=== PATIENT | female | born 1940 | race Caucasian/White ===

== ENCOUNTER 2021-02-05 11:39 | Observation (INO) | payer MEDICARE, BC ==
[2021-02-05] MEDS ORDERED: Sodium Chloride 0.9% 10 ML Syringe FLUSH PRN ×2 (12:28→16:17)
--- NOTE | 2021-02-05 12:30 | EDM.PDOC ---
ED HPI GENERAL MEDICAL PROBLEM - General Chief Complaint: General Stated Complaint: CANCER PATIENT-DIZZY SPELLS WHEN STAND UP Time Seen by Provider: 02/05/21 12:23 Source of Information: Reports: Patient, RN History Limitations: Reports: No Limitations - History of Present Illness INITIAL COMMENTS - FREE TEXT/NARRATIVE: Aleyda is a 80 year old male whom presents with and daughter, whom assist with history, to ER regarding progressive worsening for lightheadedness and generalized weakness with feeling of passing out when standing or ambulating, unsteady. Aleyda is here on vacation from [place] with family. She is battling leukemia and receiving Chemo therapy, port in anterior chest, OK with IV access. Aleyda had a low hgb a few weeks ago and require and blood trans fusion. Aleyda contacted her oncologist whom recommended ER evaluation. Aleyda denies, fever, cough, URI symptoms, SOB, chest pain, diarrhea, urinary symptoms or concerns. Appetite low on Sat, ate well yesterday with small breakfast this am, OJ and donut without concerns. - Related Data Allergies Allergy/AdvReac Type Severity Reaction Status Date / Time Iodinated Contrast Media Allergy Rash Verified 02/05/21 14:36 Sulfa (Sulfonamide Allergy Cannot Verified 02/05/21 12:16 Antibiotics) Remember Home Meds: Home Meds Calcium Carbonate [Calcium] 600 mg PO DAILY 02/05/21 [History] Multivitamin 1 tab PO DAILY 02/05/21 [History] Potassium Chloride 10 meq PO DAILY 02/05/21 [History] Simvastatin [Zocor] 20 mg PO DAILY 02/05/21 [History] hydroCHLOROthiazide [Hydrochlorothiazide] 25 mg PO DAILY 02/05/21 [History] lisinopriL [Lisinopril] 20 mg PO DAILY 02/05/21 [History] Past Medical History HEENT History: Reports: Cataract Cardiovascular History: Reports: High Cholesterol, Hypertension 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 ED EXAM, GENERAL - Physical Exam Exam: See Below Exam Limited By: No Limitations General Appearance: Alert, WD/WN, Thin Eye Exam: Bilateral Eye: Normal Inspection Ears: Hearing Grossly Normal Nose: Normal Inspection Throat/Mouth: Normal Inspection, Normal Voice, No Airway Compromise Neck: Normal Inspection Respiratory/Chest: No Respiratory Distress, Lungs Clear, Normal Breath Sounds Cardiovascular: Normal Peripheral Pulses, Regular Rate, Rhythm GI/Abdominal: Normal Bowel Sounds, Soft, Non-Tender (Female) Exam: Deferred Rectal (Female) Exam: Deferred Extremities: Normal Inspection, Normal Range of Motion, Non-Tender, Normal Capillary Refill Neurological: Alert, Oriented, CN II-XII Intact, Normal Cognition, Abnormal Gait Psychiatric: Normal Affect, Normal Mood Skin Exam: Warm, Dry, Intact, No Rash, Pallor #1 Interpretation EKG Date: 02/05/21 Time: 12:37 Rhythm: NSR Rate (Beats/Min): 92 Peck: Normal P-Wave: Variable (PACs) QRS: Normal ST-T: Normal QT: Normal Comparison: NA - No Prior EKG EKG Interpretation Comments: Poor R wave progression noted Course - Vital Signs Last Recorded V/S: Last Vital Signs Temp 36.4 C 02/05/21 12:14 Pulse 107 H 02/05/21 15:05 Resp 16 02/05/21 15:05 BP 116/66 02/05/21 15:05 Pulse Ox 96 02/05/21 15:05 Orthostatic Blood Pressure [ 106/55 Standing] Orthostatic Blood Pressure [ 114/63 Sitting] Orthostatic Blood Pressure [ 126/63 Supine] - Orders/Labs/Meds Orders: Active Orders 24 hr Category Date Time Status Cardiac Monitoring [RC] .As Directed Care 02/05/21 12:28 Active EKG Documentation Completion [RC] ASDIRECTED Care 02/05/21 12:29 Active Implanted Port Access [RC] DAILY Care 02/05/21 14:38 Active Peripheral IV Care [RC] . DIRECTED Care 02/05/21 12:29 Active PATIENT RETYPE [BBK] Stat Lab 02/05/21 14:58 Results RED BLOOD CELLS LP [BBK] Stat Lab 02/05/21 14:58 Results TYPE AND SCREEN [BBK] Stat Lab 02/05/21 14:58 Results UA W/MICROSCOPIC [URIN] Stat Lab 02/05/21 12:28 Ordered Potassium Chloride [KCL in Water 20 MEQ/100 ML] 20 meq Med 02/05/21 15:00 Active Premix Bag 1 bag IV ONETIME Sodium Chloride 0.9% [Saline Flush] Med 02/05/21 12:28 Active 10 ml FLUSH ASDIRECTED PRN Peripheral IV Insertion Adult [OM.PC] Urgent Oth 02/05/21 12:28 Ordered Transfuse Red Blood Cells [COMM] Stat Oth 02/05/21 14:36 Ordered EKG 12 Lead [EK] Urgent Ther 02/05/21 12:28 Ordered Medication Orders Potassium Chloride 20 meq/ (Premix) 100 mls @ 50 mls/hr IV ONETIME ONE Stop: 02/05/21 16:59 Last Admin: 02/05/21 15:01 Dose: 50 mls/hr Documented by: PEARL Sodium Chloride (Sodium Chloride 0.9% 10 Ml Syringe) 10 ml FLUSH ASDIRECTED PRN PRN Reason: Keep Vein Open Last Admin: 02/05/21 13:16 Dose: 10 ml Documented by: PEARL Labs: Laboratory Tests 02/05/21 02/05/21 02/05/21 Range/Units 13:14 13:14 13:14 WBC 3.7 L (4.5-11.0) K/uL RBC 2.42 L (3.30-5.50) M/uL Hgb 7.6 L (12.0-15.0) g/dL Hct 23.4 L (36.0-48.0) % MCV 97 (80-98) fL MCH 31 (27-31) pg MCHC 33 (32-36) % Plt Count 29 L* (150-400) K/uL Add Manual Diff Yes Neutrophils % (Manual) 56 (36-66) % Band Neutrophils % 15 H (5-11) % Lymphocytes % (Manual) 18 L (24-44) % Monocytes % (Manual) 11 H (2-6) % Sodium 138 L (140-148) mmol/L Potassium 2.7 L* (3.6-5.2) mmol/L Chloride 100 (100-108) mmol/L Carbon Dioxide 31 (21-32) mmol/L Anion Gap 9.7 (5.0-14.0) mmol/L BUN 18 (7-18) mg/dL Creatinine 1.2 H (0.6-1.0) mg/dL Est Cr Clr Drug Dosing 34.21 mL/min Estimated GFR (MDRD) 43 L (>60) Glucose 118 H (74-106) mg/dL Calcium 7.7 L (8.5-10.1) mg/dL Magnesium 1.3 L (1.8-2.4) mg/dL Total Bilirubin 0.4 (0.2-1.0) mg/dL AST 21 (15-37) U/L ALT 15 (12-78) U/L Alkaline Phosphatase 62 (46-116) U/L Troponin I 0.071 H* (0.000-0.056) ng/mL Total Protein 4.6 L (6.4-8.2) g/dL Albumin 2.3 L (3.4-5.0) g/dL Globulin 2.3 (2.3-3.5) g/dL Albumin/Globulin Ratio 1.0 L (1.2-2.2) Meds: Medications Generic Name Dose Route Start Last Admin Trade Name Freq PRN Reason Stop Dose Admin Potassium Chloride 20 meq/ 100 mls @ 50 mls/hr 02/05/21 15:00 02/05/21 15:01 Premix IV 02/05/21 16:59 50 mls/hr ONETIME ONE Administration Sodium Chloride 10 ml 02/05/21 12:28 02/05/21 13:16 Sodium Chloride 0.9% 10 Ml Syringe FLUSH 10 ml ASDIRECTED PRN Administration Keep Vein Open Discontinued Medications Generic Name Dose Route Start Last Admin Trade Name Freq PRN Reason Stop Dose Admin Magnesium Sulfate 2 gm/ Premix 50 mls @ 25 mls/hr 02/05/21 13:54 02/05/21 15:01 IV 02/05/21 15:53 25 mls/hr ONETIME ONE Administration Potassium Chloride 20 meq 02/05/21 13:52 02/05/21 14:59 Potassium Chloride 20 Meq Tab.Er PO 02/05/21 13:53 20 meq ONETIME ONE Administration - Re-Assessments/Exams Free Text/Narrative Re-Assessment/Exam: Up dated family and patient regarding blood test results and need for additional potassium and magnesium which may explain her symptoms. IV recommended fro decreased in renal function. Hgb a bit low 7.6 but do not know baseline level, pRBC may be needed. Low Plt in known with chemotherapy. Troponin 0.071 likely secondary to chemo therapy, no chest pain or EKG changes concerns at this time. Consider monitor for changes on EKG or Troponin level. Patient is no aware of previous Hgb level. Patient's daughter told mom to hold her potassium for a few days, so she has not been taking her routine 20meq potassium daily. 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 Called Oncology clinic regarding previous laboratory results for comparison today. January 26, 2021: Hgb 9.3 (last transfusion January 04). Plt 88 (h/o plt 20) Potassium 3.5 h/o 3.3 No previous Mag checked. Creat 0.9. Troponin 0.071 likely demand ischemia due to chronic anemia not ACS. Oncology MUK[facility] Hathaway, will be sending Oncology records to assist with inpatient care overnight. 02/05/21 14:27 Type/Screen and pRBC 1 unit ordered. Plt to be considered. Potassium 20meg IV and 20 meq PO ordered. Magnesium 2GM with request for port access at this time. 02/05/21 14:39 Departure - Departure Time of Disposition: 16:04 Disposition: Admitted As Inpatient 67 Clinical Impression: Hypokalemia, Hypomagnesemia, Symptomatic anemia, Chemotherapy adverse reaction, Thrombocytopenia, Weakness, Non-Hodgkin lymphoma, Pancytopenia, acquired - Discharge Information Sepsis Event Note (ED) - Evaluation Sepsis Screening Result: No Definite Risk - Focused Exam Vital Signs: Vital Signs Temp Pulse Resp BP Pulse Ox 02/05/21 12:56 93 126/58 L 92 L 02/05/21 12:26 88 121/61 95 02/05/21 12:14 36.4 C 95 14 126/63 96 02/05/21 12:04 36.4 C 95 14 126/63 96 - My Orders Last 24 Hours: My Active Orders 02/05/21 12:28 Cardiac Monitoring [RC] .As Directed UA W/MICROSCOPIC [URIN] Stat Sodium Chloride 0.9% [Saline Flush] 10 ml FLUSH ASDIRECTED PRN Peripheral IV Insertion Adult [OM.PC] Urgent EKG 12 Lead [EK] Urgent 02/05/21 12:29 EKG Documentation Completion [RC] ASDIRECTED Peripheral IV Care [RC] . DIRECTED 02/05/21 14:36 Transfuse Red Blood Cells [COMM] Stat 02/05/21 14:38 Implanted Port Access [RC] DAILY 02/05/21 14:58 PATIENT RETYPE [BBK] Stat RED BLOOD CELLS LP [BBK] Stat TYPE AND SCREEN [BBK] Stat 02/05/21 15:00 Potassium Chloride [KCL in Water 20 MEQ/100 ML] 20 meq Premix Bag 1 bag IV ONETIME - Assessment/Plan Last 24 Hours: My Active Orders 02/05/21 12:28 Cardiac Monitoring [RC] .As Directed UA W/MICROSCOPIC [URIN] Stat Sodium Chloride 0.9% [Saline Flush] 10 ml FLUSH ASDIRECTED PRN Peripheral IV Insertion Adult [OM.PC] Urgent EKG 12 Lead [EK] Urgent 02/05/21 12:29 EKG Documentation Completion [RC] ASDIRECTED Peripheral IV Care [RC] . DIRECTED 02/05/21 14:36 Transfuse Red Blood Cells [COMM] Stat 02/05/21 14:38 Implanted Port Access [RC] DAILY 02/05/21 14:58 PATIENT RETYPE [BBK] Stat RED BLOOD CELLS LP [BBK] Stat TYPE AND SCREEN [BBK] Stat 02/05/21 15:00 Potassium Chloride [KCL in Water 20 MEQ/100 ML] 20 meq Premix Bag 1 bag IV ONETIME
[2021-02-05] MEDS ORDERED: Potassium Chloride 10% 20 MEQ/15 ML Soln 15 ML UD Cup PO ONE (13:52)
[2021-02-05] MEDS ORDERED: Potassium Chloride 20 MEQ Tab.ER PO ONE ×3 (13:52→20:28)
[2021-02-05] MEDS ORDERED: Magnesium Sulfate/Water 2 GM in Premix Bag 1 BAG IV ONE (13:54)
--- NOTE | 2021-02-05 14:51 | PCM.HP.2 ---
H&P History of Present Illness - General Date of Service: 02/05/21 Admit Problem/Dx: Admission Diagnosis/Problem Admission Diagnosis/Problem Weakness Source of Information: Patient, Family, Old Records, Provider, RN Notes Reviewed History Limitations: Reports: No Limitations - History of Present Illness Initial Comments - Free Text/Narative: Ms. Hurt is a 80-year-old woman who was admitted to observation status through the emergency department with weakness and lightheadedness. 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 Last chemotherapy in fusion was on January 26. Recent chemotherapy has been complicated by pancytopenia. She did receive transfusion of 2 units of red blood cells first part of January. Over the last 2 days has become progressively more weak, she does admit to poor intake of liquids. She has felt lightheaded and has had several near syncopal episodes. Because of progressive symptoms she was brought into the emergency department for further evaluation. She is anemic with a hemoglobin of 7.6 and thrombocytopenic with platelets of 29,000. Potassium and magnesium are both low. Orthostatic vital signs do document significant orthostatic drop in blood pressure from lying to standing. - Related Data Allergies/Adverse Reactions: Allergies Allergy/AdvReac Type Severity Reaction Status Date / Time Iodinated Contrast Media Allergy Rash Verified 02/05/21 14:36 Sulfa (Sulfonamide Allergy Cannot Verified 02/05/21 12:16 Antibiotics) Remember Home Medications: Home Meds Calcium Carbonate [Calcium] 600 mg PO DAILY 02/05/21 [History] Multivitamin 1 tab PO DAILY 02/05/21 [History] Potassium Chloride 10 meq PO DAILY 02/05/21 [History] Simvastatin [Zocor] 20 mg PO DAILY 02/05/21 [History] hydroCHLOROthiazide [Hydrochlorothiazide] 25 mg PO DAILY 02/05/21 [History] lisinopriL [Lisinopril] 20 mg PO DAILY 02/05/21 [History] Past Medical History HEENT History: Reports: Cataract Cardiovascular History: Reports: High Cholesterol, Hypertension 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 Denies: Fever, Chills HEENT: Reports: No Symptoms Pulmonary: Reports: No Symptoms Cardiovascular: Reports: Lightheadedness. Denies: Chest Pain, Palpitations, Dyspnea on Exertion, Orthopnea, PND, Edema, Syncope Gastrointestinal: Reports: No Symptoms Genitourinary: Reports: No Symptoms Musculoskeletal: Reports: No Symptoms Skin: Reports: No Symptoms Psychiatric: Reports: No Symptoms Neurological: Reports: No Symptoms Hematologic/Lymphatic: Reports: No Symptoms Immunologic: Reports: No Symptoms Exam - Exam Exam: See Below - Vital Signs Vital Signs: Last Vital Signs Temp 97.5 F 02/05/21 12:14 Pulse 93 02/05/21 12:56 Resp 14 02/05/21 12:14 BP 126/58 L 02/05/21 12:56 Pulse Ox 92 L 02/05/21 12:56 Orthostatic Blood Pressure [ 106/55 Standing] Orthostatic Blood Pressure [ 114/63 Sitting] Orthostatic Blood Pressure [ 126/63 Supine] Weight: 145 lb - Exam Quality Assessment: DVT Prophylaxis General: Alert, Oriented, Cooperative, Mild Distress HEENT: Conjunctiva Clear, Hearing Intact, Normal Nasal Septum, Posterior Pharynx Clear, Pupils Equal. No: Mucosa Moist & [place] Neck: Supple, Trachea Midline, +2 Carotid Pulse wo Bruit Lungs: Clear to Auscultation, Normal Respiratory Effort Cardiovascular: Regular Rate, Regular Rhythm, Normal S1, Normal S2, Systolic Murmur. No: Diastolic Murmur GI/Abdominal Exam: Soft, Non-Tender, No Organomegaly, No Distention Back Exam: Normal Inspection, Full Range of Motion Extremities: Non-Tender, No Pedal Edema Skin: Warm, Dry, Intact Neurological: Cranial Nerves Intact, Strength Equal Bilateral, Normal Speech, Normal Tone, Sensation Intact. No: Focal Deficit Neuro Extensive - Mental Status: Alert, Oriented x3, Normal Mood/Affect, Normal Cognition, Memory Intact - Patient Data Lab Results Last 24 hrs: Laboratory Results - last 24 hr 02/05/21 02/05/21 02/05/21 Range/Units 13:14 13:14 13:14 WBC 3.7 L (4.5-11.0) K/uL RBC 2.42 L (3.30-5.50) M/uL Hgb 7.6 L (12.0-15.0) g/dL Hct 23.4 L (36.0-48.0) % MCV 97 (80-98) fL MCH 31 (27-31) pg MCHC 33 (32-36) % Plt Count 29 L* (150-400) K/uL Add Manual Diff Yes Neutrophils % (Manual) 56 (36-66) % Band Neutrophils % 15 H (5-11) % Lymphocytes % (Manual) 18 L (24-44) % Monocytes % (Manual) 11 H (2-6) % Sodium 138 L (140-148) mmol/L Potassium 2.7 L* (3.6-5.2) mmol/L Chloride 100 (100-108) mmol/L Carbon Dioxide 31 (21-32) mmol/L Anion Gap 9.7 (5.0-14.0) mmol/L BUN 18 (7-18) mg/dL Creatinine 1.2 H (0.6-1.0) mg/dL Est Cr Clr Drug Dosing 34.21 mL/min Estimated GFR (MDRD) 43 L (>60) Glucose 118 H (74-106) mg/dL Calcium 7.7 L (8.5-10.1) mg/dL Magnesium 1.3 L (1.8-2.4) mg/dL Total Bilirubin 0.4 (0.2-1.0) mg/dL AST 21 (15-37) U/L ALT 15 (12-78) U/L Alkaline Phosphatase 62 (46-116) U/L Troponin I 0.071 H* (0.000-0.056) ng/mL Total Protein 4.6 L (6.4-8.2) g/dL Albumin 2.3 L (3.4-5.0) g/dL Globulin 2.3 (2.3-3.5) g/dL Albumin/Globulin Ratio 1.0 L (1.2-2.2) Result Diagrams: 02/05/21 13:14 02/05/21 13:14 Sepsis Event Note - Evaluation Sepsis Screening Result: No Definite Risk - Focused Exam Vital Signs: Vital Signs Temp Pulse Resp BP Pulse Ox 02/05/21 12:56 93 126/58 L 92 L 02/05/21 12:26 88 121/61 95 02/05/21 12:14 97.5 F 95 14 126/63 96 02/05/21 12:04 97.5 F 95 14 126/63 96 *Q Meaningful Use (ADM) - VTE *Q VTE Pharmacological Contraindications *Q: Thrombocytopenia - VTE Risk Assess *Q Each Risk Factor Represents 1 Point: None Total Score 1 Point Risk Factors: 0 Each Risk Factor Represents 2 Points: Malignancy (present or previous) Total Score 2 Point Risk Factors: 2 Each Risk Factor Represents 3 Points: Age 75 Years or Greater Total Score 3 Point Risk Factors: 3 Each Risk Factor Represents 5 Points: None Total Score 5 Point Risk Factors: 0 Venous Thromboembolism Risk Factor Score *Q: 5 Problem List Initiated/Reviewed/Updated: Yes Orders Last 24hrs: Active Orders 24 hr Category Date Time Status Patient Status Manage Transfer [TRANSFER] Routine ADT 02/05/21 14:41 Ordered Cardiac Monitoring [RC] .As Directed Care 02/05/21 12:28 Active EKG Documentation Completion [RC] ASDIRECTED Care 02/05/21 12:29 Active Implanted Port Access [RC] DAILY Care 02/05/21 14:38 Active Peripheral IV Care [RC] . DIRECTED Care 02/05/21 12:29 Active RED BLOOD CELLS LP [BBK] Stat Lab 02/05/21 14:36 Ordered TYPE AND SCREEN [BBK] Stat Lab 02/05/21 14:36 Ordered UA W/MICROSCOPIC [URIN] Stat Lab 02/05/21 12:28 Ordered Magnesium Sulfate/Water [Magnesium Sulfate in Water 2 Med 02/05/21 13:54 Active GM/50 ML] 2 gm Premix Bag 1 bag IV ONETIME Potassium Chloride [KCL in Water 20 MEQ/100 ML] 20 meq Med 02/05/21 15:00 Active Premix Bag 1 bag IV ONETIME Sodium Chloride 0.9% [Saline Flush] Med 02/05/21 12:28 Active 10 ml FLUSH ASDIRECTED PRN Peripheral IV Insertion Adult [OM.PC] Urgent Oth 02/05/21 12:28 Ordered Transfuse Red Blood Cells [COMM] Stat Oth 02/05/21 14:36 Ordered Resuscitation Status Routine Resus Stat 02/05/21 14:44 Ordered EKG 12 Lead [EK] Urgent Ther 02/05/21 12:28 Ordered Medication Orders Magnesium Sulfate 2 gm/ Premix 50 mls @ 25 mls/hr IV ONETIME ONE Stop: 02/05/21 15:53 Potassium Chloride 20 meq/ (Premix) 100 mls @ 50 mls/hr IV ONETIME ONE Stop: 02/05/21 16:59 Sodium Chloride (Sodium Chloride 0.9% 10 Ml Syringe) 10 ml FLUSH ASDIRECTED PRN PRN Reason: Keep Vein Open Last Admin: 02/05/21 13:16 Dose: 10 ml Documented by: PEARL Assessment/Plan Comment:: ASSESSMENT AND PLAN GENERALIZED WEAKNESS-likely multifactorial related to anemia and dehydration, with recent chemotherapy. -Physical therapy consult ORTHOSTATIC HYPOTENSION-recent episodes of near syncope and weakness. Likely secondary to dehydration, complicated by antihypertensive therapy. -IV fluids for hydration -Hold antihypertensive therapy with lisinopril and hydrochlorothiazide HYPOKALEMIA-she had stopped taking oral potassium replacement, also complicated by therapy with hydrochlorothiazide -Oral and IV potassium replacement -Recheck potassium level later tonight and in a.m. HYPOMAGNESEMIA -IV magnesium replacement -Recheck magnesium level in a.m. PANCYTOPENIA-secondary to underlying lymphoma and chemotherapy. -Transfuse 1 unit of red blood cells -Recheck labs in a.m. ELEVATED TROPONIN-likely secondary to demand ischemia in setting of current illness and recent chemotherapy -Serial troponin levels LYMPHOMA MAINTENANCE ISSUES -DVT prophylaxis; SCUDs, hold on anticoagulation because of thrombocytopenia -GI prophylaxis; not indicated -[place] catheter; not indicated -Nutrition; regular diet -Nicotine dependence; not required CODE STATUS-FULL CODE ADMISSION STATUS-this patient will be admitted to observation status, expect no more than a one night hospital stay for evaluation and management of problems as outlined above. DISPOSITION-anticipate discharge to home after the hospital stay. PRIMARY CARE PROVIDER-she receives primary care and specialty care at her home in [place] - Mortality Measure Prognosis:: Good
[2021-02-05] MEDS ORDERED: Potassium Chloride 20 MEQ in Premix Bag 1 BAG IV ONE (15:00)
[2021-02-05] MEDS ORDERED: Ondansetron 4 MG/2 ML SDV IV PRN (16:17)
[2021-02-05] MEDS ORDERED: Acetaminophen 325 MG Tab PO PRN (16:17)
[2021-02-05] MEDS ORDERED: Polyethylene Glycol 3350 Powder 17 GM Packet PO PRN (16:17)
[2021-02-05] MEDS: Sodium Chloride 0.9% 1,000 ML IV SCH (17:09)
[2021-02-05] MEDS ORDERED: Magnesium Sulfate/Water 2 GM in Premix Bag 1 BAG IV SCH (19:00)
[2021-02-06] MEDS: Sodium Chloride 0.9% 1,000 ML IV SCH (06:45)
[2021-02-06] MEDS ORDERED: atorvaSTATin 10 MG Tab PO SCH (09:00)
[2021-02-06] MEDS ORDERED: Calcium Carbonate 500 MG Tab.Chew PO SCH (09:00)
[2021-02-06] MEDS ORDERED: Potassium Chloride 10 MEQ Cap.ER PO SCH (09:00)
--- NOTE | 2021-02-06 11:50 | PCM.DCSUM1 ---
Discharge Summary - Hospital Course Brief History: Ms. Hurt is a 80-year-old woman who was admitted through the emergency department with weakness and lightheadedness secondary to dehydration, orthostatic hypotension, symptomatic anemia, hypokalemia, and hypomagnesemia. - Discharge Data Discharge Date: 02/06/21 Discharge Disposition: Home, Self-Care 01 Condition: Fair - Referral to Home Health Primary Care Physician: PCP None - Discharge Diagnosis/Problem(s) (1) Dehydration SNOMED Code(s): 41964972 ICD Code: E86.0 - DEHYDRATION Status: Acute Current Visit: Yes (2) Orthostatic hypotension SNOMED Code(s): 34357063 ICD Code: I95.1 - ORTHOSTATIC HYPOTENSION Status: Acute Current Visit: Yes (3) Hypokalemia SNOMED Code(s): 99923455 ICD Code: E87.6 - HYPOKALEMIA Status: Acute Current Visit: Yes (4) Hypomagnesemia SNOMED Code(s): 813921521 ICD Code: E83.42 - HYPOMAGNESEMIA Status: Acute Current Visit: Yes (5) Symptomatic anemia SNOMED Code(s): 309449732 ICD Code: D64.9 - ANEMIA, UNSPECIFIED Status: Acute Current Visit: Yes (6) Thrombocytopenia SNOMED Code(s): 069079796 ICD Code: D69.6 - THROMBOCYTOPENIA, UNSPECIFIED Status: Acute Current Visit: Yes (7) Non-Hodgkin lymphoma SNOMED Code(s): 473706105 ICD Code: C85.90 - NON-HODGKIN LYMPHOMA, UNSPECIFIED, UNSPECIFIED SITE Status: Acute Current Visit: Yes - Patient Summary/Data Consults: Consultations 02/05/21 16:17 PT Evaluation and Treatment [CONS] Routine Please Evaluate and Treat. PT Reason for Consult: Weakness This query below is only for informational purposes and is not editable. Hospital Course: Ms. Hurt is a 80-year-old woman who was admitted to observation status through the emergency department with weakness and lightheadedness. 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 Last chemotherapy infusion was on January 26. Recent chemotherapy has been complicated by pancytopenia. She did receive transfusion of 2 units of red blood cells first part of January. Over the last 2 days has become progressively more weak, she does admit to poor intake of liquids. She has felt lightheaded and has had several near syncopal episodes. Because of progressive symptoms she was brought into the emergency department for further evaluation. She is anemic with a hemoglobin of 7.6 and thrombocytopenic with platelets of 29,000. Potassium and magnesium are both low. Orthostatic vital signs do document significant orthostatic drop in blood pressure from lying to standing. Because of symptoms, she was transfused 1 unit of red blood cells on the morning after admission hemoglobin was up to 8.1. She received IV fluids through the night and antihypertensive therapy with lisinopril and hydrochlorothiazide were held. She was given IV magnesium replacement as well as oral and IV potassium replacement. By the following morning she was feeling well with no further symptoms of lightheadedness. Orthostatic hypotension had resolved and her magnesium as well as potassium levels were within normal range. At the time of discharge lisinopril will be resumed, but hydrochlorothiazide will be discontinued. She will resume potassium supplementation as previously ordered. Activity will be as tolerated and she will resume her usual diet. Follow-up appointment is already scheduled for her with oncology. - Patient Instructions Diet: Usual Diet as Tolerated Activity: As Tolerated Other/Special Instructions: Follow-up with oncology as previously scheduled. - Discharge Plan *PRESCRIPTION DRUG MONITORING PROGRAM REVIEWED*: Not Applicable *COPY OF PRESCRIPTION DRUG MONITORING REPORT IN PATIENT DAREK: Not Applicable Home Medications: Home Meds Calcium Carbonate [Calcium] 600 mg PO DAILY 02/05/21 [History] Multivitamin 1 tab PO DAILY 02/05/21 [History] Potassium Chloride 10 meq PO DAILY 02/05/21 [History] Simvastatin [Zocor] 20 mg PO DAILY 02/05/21 [History] lisinopriL [Lisinopril] 20 mg PO DAILY 02/05/21 [History] Potassium Chloride 10 meq PO DAILY cap.er 02/06/21 [Rx] - Discharge Summary/Plan Comment DC Time >30 min.: No - Patient Data Vitals - Most Recent: Last Vital Signs Temp 97.2 F 02/06/21 08:33 Pulse 87 02/06/21 08:33 Resp 16 02/06/21 08:33 BP 126/58 L 02/06/21 08:33 Pulse Ox 99 02/06/21 08:33 Orthostatic Blood Pressure [ 125/63 Standing] Orthostatic Blood Pressure [ 131/71 Sitting] Orthostatic Blood Pressure [ 140/57 Supine] Weight - Most Recent: 144 lb 6 oz I&O - Last 24 hours: Intake & Output 02/05/21 02/06/21 02/06/21 22:59 06:59 14:59 Intake Total 977 1514 Output Total 300 700 Balance 677 -700 1514 Lab Results - Last 24 hrs: Laboratory Results - last 24 hr 02/05/21 02/05/21 02/05/21 Range/Units 13:14 13:14 13:14 WBC 3.7 L (4.5-11.0) K/uL RBC 2.42 L (3.30-5.50) M/uL Hgb 7.6 L (12.0-15.0) g/dL Hct 23.4 L (36.0-48.0) % MCV 97 (80-98) fL MCH 31 (27-31) pg MCHC 33 (32-36) % Plt Count 29 L* (150-400) K/uL Add Manual Diff Yes Neutrophils % (Manual) 56 (36-66) % Band Neutrophils % 15 H (5-11) % Lymphocytes % (Manual) 18 L (24-44) % Monocytes % (Manual) 11 H (2-6) % Eosinophils % (Manual) (2-4) % Metamyelocytes % % Sodium 138 L (140-148) mmol/L Potassium 2.7 L* (3.6-5.2) mmol/L Chloride 100 (100-108) mmol/L Carbon Dioxide 31 (21-32) mmol/L Anion Gap 9.7 (5.0-14.0) mmol/L BUN 18 (7-18) mg/dL Creatinine 1.2 H (0.6-1.0) mg/dL Est Cr Clr Drug Dosing 34.21 mL/min Estimated GFR (MDRD) 43 L (>60) Glucose 118 H (74-106) mg/dL Calcium 7.7 L (8.5-10.1) mg/dL Magnesium 1.3 L (1.8-2.4) mg/dL Total Bilirubin 0.4 (0.2-1.0) mg/dL AST 21 (15-37) U/L ALT 15 (12-78) U/L Alkaline Phosphatase 62 (46-116) U/L Troponin I 0.071 H* (0.000-0.056) ng/mL Total Protein 4.6 L (6.4-8.2) g/dL Albumin 2.3 L (3.4-5.0) g/dL Globulin 2.3 (2.3-3.5) g/dL Albumin/Globulin Ratio 1.0 L (1.2-2.2) Blood Type Gel Antibody Screen Crossmatch 02/05/21 02/05/21 02/06/21 Range/Units 14:58 19:59 04:10 WBC 3.6 L (4.5-11.0) K/uL RBC 2.62 L (3.30-5.50) M/uL Hgb 8.1 L (12.0-15.0) g/dL Hct 24.8 L (36.0-48.0) % MCV 95 (80-98) fL MCH 31 (27-31) pg MCHC 33 (32-36) % Plt Count 27 L* (150-400) K/uL Add Manual Diff Yes Neutrophils % (Manual) 57 (36-66) % Band Neutrophils % 18 H (5-11) % Lymphocytes % (Manual) 12 L (24-44) % Monocytes % (Manual) 10 H (2-6) % Eosinophils % (Manual) 1 L (2-4) % Metamyelocytes % 2 % Sodium (140-148) mmol/L Potassium 3.5 L (3.6-5.2) mmol/L Chloride (100-108) mmol/L Carbon Dioxide (21-32) mmol/L Anion Gap (5.0-14.0) mmol/L BUN (7-18) mg/dL Creatinine (0.6-1.0) mg/dL Est Cr Clr Drug Dosing mL/min Estimated GFR (MDRD) (>60) Glucose (74-106) mg/dL Calcium (8.5-10.1) mg/dL Magnesium (1.8-2.4) mg/dL Total Bilirubin (0.2-1.0) mg/dL AST (15-37) U/L ALT (12-78) U/L Alkaline Phosphatase (46-116) U/L Troponin I 0.068 H* (0.000-0.056) ng/mL Total Protein (6.4-8.2) g/dL Albumin (3.4-5.0) g/dL Globulin (2.3-3.5) g/dL Albumin/Globulin Ratio (1.2-2.2) Blood Type A POSITIVE Gel Antibody Screen Negative Crossmatch See Detail 02/06/21 Range/Units 04:10 WBC (4.5-11.0) K/uL RBC (3.30-5.50) M/uL Hgb (12.0-15.0) g/dL Hct (36.0-48.0) % MCV (80-98) fL MCH (27-31) pg MCHC (32-36) % Plt Count (150-400) K/uL Add Manual Diff Neutrophils % (Manual) (36-66) % Band Neutrophils % (5-11) % Lymphocytes % (Manual) (24-44) % Monocytes % (Manual) (2-6) % Eosinophils % (Manual) (2-4) % Metamyelocytes % % Sodium 139 L (140-148) mmol/L Potassium 4.1 (3.6-5.2) mmol/L Chloride 106 (100-108) mmol/L Carbon Dioxide 27 (21-32) mmol/L Anion Gap 10.1 (5.0-14.0) mmol/L BUN 13 (7-18) mg/dL Creatinine 0.9 (0.6-1.0) mg/dL Est Cr Clr Drug Dosing 45.53 mL/min Estimated GFR (MDRD) > 60 (>60) Glucose 111 H (74-106) mg/dL Calcium 7.2 L (8.5-10.1) mg/dL Magnesium 2.2 D (1.8-2.4) mg/dL Total Bilirubin (0.2-1.0) mg/dL AST (15-37) U/L ALT (12-78) U/L Alkaline Phosphatase (46-116) U/L Troponin I 0.095 H* (0.000-0.056) ng/mL Total Protein (6.4-8.2) g/dL Albumin (3.4-5.0) g/dL Globulin (2.3-3.5) g/dL Albumin/Globulin Ratio (1.2-2.2) Blood Type Gel Antibody Screen Crossmatch Med Orders - Current: Current Medications Acetaminophen (Acetaminophen 325 Mg Tab) 650 mg PO Q4H PRN PRN Reason: Pain (Mild 1-3)/fever Calcium Carbonate/Glycine (Calcium Carbonate 500 Mg Tab.Chew) 500 mg PO DAILY [facility] Last Admin: 02/06/21 08:45 Dose: 500 mg Documented by: Sodium Chloride (Normal Saline) 1,000 mls @ 75 mls/hr IV ASDIRECTED [facility] Last Admin: 02/06/21 06:45 Dose: 75 mls/hr Documented by: Ondansetron HCl (Ondansetron 4 Mg/2 Ml Sdv) 4 mg IV Q4H PRN PRN Reason: Nausea/Vomiting Simvastatin 20mg Tab ((Ptom)) 1 each PO BEDTIME [facility] Polyethylene Glycol (Polyethylene Glycol 3350 Powder 17 Gm Packet) 17 gm PO DAILY PRN PRN Reason: Constipation Potassium Chloride (Potassium Chloride 10 Meq Cap.Er) 10 meq PO DAILY [facility] Last Admin: 02/06/21 08:45 Dose: 10 meq Documented by: Sodium Chloride (Sodium Chloride 0.9% 10 Ml Syringe) 10 ml FLUSH ASDIRECTED PRN PRN Reason: Keep Vein Open Discontinued Medications Magnesium Sulfate 2 gm/ Premix 50 mls @ 25 mls/hr IV ONETIME ONE Stop: 02/05/21 15:53 Last Admin: 02/05/21 15:01 Dose: 25 mls/hr Documented by: Potassium Chloride 20 meq/ (Premix) 100 mls @ 50 mls/hr IV ONETIME ONE Stop: 02/05/21 16:59 Last Admin: 02/05/21 15:01 Dose: 50 mls/hr Documented by: Magnesium Sulfate 2 gm/ Premix 50 mls @ 25 mls/hr IV Q6H [facility] Stop: 02/05/21 20:59 Last Admin: 02/05/21 19:21 Dose: 25 mls/hr Documented by: Potassium Chloride (Potassium Chloride 20 Meq Tab.Er) 20 meq PO ONETIME ONE Stop: 02/05/21 13:53 Last Admin: 02/05/21 14:59 Dose: 20 meq Documented by: Potassium Chloride (Potassium Chloride 20 Meq Tab.Er) 40 meq PO ONETIME ONE Stop: 02/05/21 17:01 Last Admin: 02/05/21 17:06 Dose: 40 meq Documented by: Potassium Chloride (Potassium Chloride 20 Meq Tab.Er) 40 meq PO ONETIME ONE Stop: 02/05/21 20:29 Last Admin: 02/05/21 20:57 Dose: 40 meq Documented by: Sodium Chloride (Sodium Chloride 0.9% 10 Ml Syringe) 10 ml FLUSH ASDIRECTED PRN PRN Reason: Keep Vein Open Last Admin: 02/05/21 13:16 Dose: 10 ml Documented by: - Exam General: Reports: Alert, Oriented, Cooperative, No Acute Distress Lungs: Reports: Clear to Auscultation, Normal Respiratory Effort Cardiovascular: Reports: Regular Rate, Regular Rhythm, No Murmurs GI/Abdominal Exam: Soft, Non-Tender, No Organomegaly, No Distention Extremities: Non-Tender, No Pedal Edema *Q Meaningful Use (DIS) - VTE *Q VTE Pharmacological Contraindications *Q: Thrombocytopenia
[2021-02-06] MEDS ORDERED: SIMVASTATIN 20MG TAB (PTOM) PO SCH (21:00)
== END 2021-02-06 12:15 | disposition home or self-care (01) ==
LOC: JP.ED 11:39 → JP.MS 14:41
PROVIDERS: ADMIT Hospitalist; ATTEND Hospitalist
DX: E86.0 Dehydration (principal); I95.1 Orthostatic hypotension; E87.6 Hypokalemia; E83.42 Hypomagnesemia; D64.9 Anemia, unspecified; D69.6 Thrombocytopenia, unspecified; C85.90 Non-Hodgkin lymphoma, unspecified, unspecified site; Z91.041 Radiographic dye allergy status; Z88.2 Allergy status to sulfonamides; E78.00 Pure hypercholesterolemia, unspecified; I10 Essential (primary) hypertension
CPT/HCPCS: 36415; 36430; 80048; 80053; 83735; 84132; 84484; 85025; 86850; 86900; 86901; 86920; 86922; 93005; 96365; 96366; 96368; 97116; 97162; 99285; A9270; G0378; J3475; J3480; J7030; P9016